=== PATIENT | female | born 1955 | race Caucasian/White ===

== ENCOUNTER 2018-01-11 16:36 | Emergency (ER) | payer BC ==
--- NOTE | 2018-01-11 17:41 | RAD ---
Indication: Leg edema. Duplex Doppler sonography of the deep venous system of the left lower extremity deep venous system was performed. Bilaterally the common femoral veins appear patent and compressible. Left proximal greater saphenous vein, proximal deep femoral vein, femoral vein, popliteal vein, posterior tibial veins and peroneal veins appear patent and compressible. IMPRESSION: NO EVIDENCE OF DEEP VENOUS THROMBOSIS IS IDENTIFIED.
[2018-01-11 18:38] VITALS: BP 132/68
--- NOTE | 2018-01-11 19:52 | ED ---
Conner Estrada Natalie scribed for Manjeet Rashid MD on 01/11/18 at 1704 . Lower Extremity - HPI Summary HPI Summary: The patient is a 62 y/o M presenting to [facility] from [facility] c/o pain and swelling in left popliteal and left calf starting a few weeks ago, but worsening in the last few days. The pain is describing as an aching, and it is rated 6/10 in severity. THe pt reports that the pain gets intolerable at night to the point at which she cannot sleep. She denies upper left thigh pain and fever. She has been taken 600mg Ibuprofen 3x day since onset of pain, which helps to alleviate the pain. She had XRs done at [facility] which had negative results. - History of Current Complaint Chief Complaint: EDExtremityLower Stated Complaint: LT LEG PAIN Time Seen by Provider: 01/11/18 16:39 Hx Obtained From: Patient Mechanism Of Injury: Unknown Onset of Pain: Days Onset/Duration: Still Present Severity Initially: Mild Severity Currently: Moderate Pain Intensity: 6 Pain Scale Used: 0-10 Numeric Timing: Constant Location: Is Discrete @ - left popiteal and calf Character Of Pain: Aching Associated Signs And Symptoms: Positive: Swelling. Negative: Fever Aggravating Factor(s): Other - palpation Alleviating Factor(s): Other - Ibuprofen - Allergies/Home Medications Allergies/Adverse Reactions: Allergies Allergy/AdvReac Type Severity Reaction Status Date / Time No Known Allergies Allergy Verified 01/11/18 16:44 PMH/Surg Hx/FS Hx/Imm Hx Cardiovascular History: Denies: Hx Pacemaker/ICD Musculoskeletal History: Reports: Other Musculoskeletal History - PIERCING PAIN X 4 WEEKS,X-RAYS [facility] [place], LEFT LEG Psychiatric History: Denies: Hx Panic Disorder - Cancer History Hx Chemotherapy: No Hx Radiation Therapy: No - Surgical History Surgery Procedure, Year, and Place: GB 1 YR AGO Infectious Disease History: No Infectious Disease History: Denies: Traveled Outside the [place] in Last 30 Days - Family History Known Family History: Negative: Cardiac Disease - Social History Alcohol Use: None Substance Use Type: Reports: None Smoking Status (MU): Heavy Every Day Tobacco Smoker Review of Systems Negative: Fever Musculoskeletal: Negative - upper thigh pain Positive: Other - pain in left popliteal and calf, swelling in left calf All Other Systems Reviewed And Are Negative: Yes Physical Exam - Summary Physical Exam Summary: Appearance: The patient is well-nourished in no acute distress and in no acute pain. Skin: The skin is warm and dry and skin color reflects adequate perfusion. HEENT: The head is normocephalic and atraumatic. The pupils are equal and reactive. The conjunctivae are clear and without drainage. Nares are patent and without drainage. Mouth reveals moist mucous membranes and the throat is without erythema and exudate. The external ears are intact. The ear canals are patent and without drainage. The tympanic membranes are intact. Neck: The neck is supple with full range of motion and non-tender. There are no carotid bruits. There is no neck vein distension. Respiratory: Chest is non-tender. Lungs are clear to auscultation and breath sounds are symmetrical and equal. Cardiovascular: Heart is regular rate and rhythm. There is no murmur or rub auscultated. There is no peripheral edema and pulses are symmetrical and equal. Abdomen: The abdomen is soft and non-tender. There are normal bowel sounds heard in all four quadrants and there is no organomegaly palpated. Musculoskeletal: There is no back tenderness noted. Extremities are non-tender with full range of motion except there is tenderness in the popliteal area and calf of the left leg. No masses excruciating. The common femoral canal is nontender. There is good capillary refill. There is no peripheral edema. Neurological: Patient is alert and oriented to person, place and time. The patient has symmetrical motor strength in all four extremities. Cranial nerves are grossly intact. Deep tendon reflexes are symmetrical and equal in all four extremities. Psychiatric: The patient has an appropriate affect and does not exhibit any anxiety or depression. Triage Information Reviewed: Yes Vital Signs On Initial Exam: Initial Vitals Temp Pulse Resp BP Pulse Ox 99.5 F 88 16 135/68 95 01/11/18 16:40 01/11/18 16:40 01/11/18 16:40 01/11/18 16:40 01/11/18 16:40 Vital Signs Reviewed: Yes Diagnostics - Vital Signs Vital Signs Temp Pulse Resp BP Pulse Ox 01/11/18 16:40 99.5 F 88 16 135/68 95 - Laboratory Lab Statement: Any lab studies that have been ordered have been reviewed, and results considered in the medical decision making process. - Ultrasound No standard instances Ultrasound Interpretation: No Acute Changes - Venous Doppler LLE: No evidence of deep venous thrombosis is identified. ED physician has reviewed this report. Ultrasound Interpretation Completed By: Radiologist Re-Evaluation - Re-Evaluation First Eval Re-Evaluation Time: 18:30 Change: Improved Comment: I spoke with the pt about her US results. She will be discharged home. Lower Extremity Course/Dx - Course Course Of Treatment: Ms. Shah has been having pain in the back of her left knee for several weeks. In the last few days it has extended down into her left calf. She states that it's swollen behind her knee although I cannot appreciate any swelling or abnormality. Her patella does not ballotte. Her vital signs are normal. Ultrasound is obtained as she was sent here to rule out a DVT. This shows no DVT or other pathology. Her primary care physician wanted to obtain an MRI but was unable to secondary to insurance. I think she needs orthopedic follow-up and further evaluation. - Diagnoses Provider Diagnoses: Knee pain Discharge - Sign-Out/Discharge Documenting (check all that apply): Discharge/Admit/Transfer - Pt will be discharged home. - Discharge Plan Condition: Stable Disposition: HOME Patient Education Materials: Knee Pain (ED) Referrals: Leeann Valenzuela MD [Medical Doctor] - 2 Days Dania Mcneil MD [Primary Care Provider] - 2 Days Additional Instructions: Follow up with Dr. Valenzuela, orthopedics, in 2 days. Follow up with your primary care physician in 2-3 days. Return to the emergency department if any new or worsening symptoms occur. - Billing Disposition and Condition Condition: STABLE Disposition: Home The documentation as recorded by the Conner onofre Natalie accurately reflects the service I personally performed and the decisions made by me, Manjeet Rashid MD.
== END 2018-01-11 18:38 | disposition home or self-care (01) ==
LOC: ED 16:36
DX: M25.562 Pain in left knee (principal); Z72.0 Tobacco use; R60.0 Localized edema
CPT/HCPCS: 99282